=== PATIENT | male | born 1960 | race Caucasian/White ===

== ENCOUNTER 2017-02-05 08:01 | Day surgery (SDC) | payer OTHER ==
[~2017-02-05] VITALS: Ht 175.3 cm; Wt 90.0 kg
[~2017-02-05 08:01] MED LIST: ATORVASTATIN CA80 MG PO; BAYER CHEWABLE81 MG PO; BENICAR20 MG PO; COUMADIN5 MG PO; COUMADIN7.5 MG PO; CRESTOR20 MG PO; FLONASE16 G1 BOTH NARES; FOLIC ACID1 MG PO; GLUCOPHAGE XR750 MG PO; LISINOPRIL5 MG PO; LOVENOX80 MG/0.8 SC; PRINIVIL5 MG PO; TRICOR145 MG PO; TRILIPIX135 MG PO; TYLENOL EXTRA500 MG PO; VITAMIN D31000 UNI2 PO; XARELTO20 MG PO
[2017-02-05 08:47] VITALS: BP 113/70
[2017-02-05 09:01] LABS: POINT-OF-CARE METER ID UU14174212
[2017-02-05] MEDS ORDERED: PERCOCET 5/31 TABLET PO (11:45)
[2017-02-05 12:02] LABS: POINT-OF-CARE METER ID UU13113675
[2017-02-05 12:36] VITALS: BP 121/60
[2017-02-05 13:44] VITALS: BP 113/64
== END 2017-02-05 13:50 | disposition home or self-care (01) ==
LOC: SDC 08:01
PROVIDERS: Surgery
PROC: 0YU60JZ Supplement Left Inguinal Region with Synthetic Substitute, Open Approach (ICD-10-PCS; principal; 2017-02-05)
DX: K40.90 Unilateral inguinal hernia, without obstruction or gangrene, not specified as recurrent (principal); E66.9 Obesity, unspecified; Z68.29 Body mass index [BMI] 29.0-29.9, adult; N40.0 Benign prostatic hyperplasia without lower urinary tract symptoms; E11.22 Type 2 diabetes mellitus with diabetic chronic kidney disease; N18.3 Chronic kidney disease, stage 3 (moderate); E78.5 Hyperlipidemia, unspecified; E78.1 Pure hyperglyceridemia; Q43.3 Congenital malformations of intestinal fixation; E55.9 Vitamin D deficiency, unspecified; Z82.49 Family history of ischemic heart disease and other diseases of the circulatory system; Z83.3 Family history of diabetes mellitus; Z79.82 Long term (current) use of aspirin; Z79.84 Long term (current) use of oral hypoglycemic drugs; Z88.2 Allergy status to sulfonamides
CPT/HCPCS: 82948; C1781; J0131; J0690; J1170; J2250

== ENCOUNTER 2017-02-10 08:06 | Inpatient (IN) | payer OTHER ==
[~2017-02-10] VITALS: Ht 175.3 cm; Wt 90.0 kg
[~2017-02-10 08:06] MED LIST changes: +PERCOCET 5/31 TABLET PO
[2017-02-10 08:45] LABS: EOSINOPHIL COUNT 0.3 K/uL (0-0.3); HEMATOCRIT 37.6 % (38.0-50.0); IMMATURE GRANULOCYTE (%) 0.3 % (0.0-0.7); INSTRUMENT ABS NEUTROPHIL CT 10.7 K/uL; LYMPHOCYTE COUNT 1.7 K/uL (1.0-2.8); MCH 29.7 PG (29.0-34.0); MCHC 32.7 G/DL (30.0-36.0); MCV 90.8 FL (86-99); MEAN PLAT.VOLUME 8.9 uM^3 (9.0-12.4); MONOCYTE (%) 9.2 % (3-12); MONOCYTE COUNT 1.3 K/uL (0-0.8); NEUTROPHIL (%) 76.3 % (45-76); NEUTROPHIL COUNT 10.7 K/uL (1.8-6.4); PLATELET COUNT 266 K/uL (156-360); RBC DIS.WIDTH-CV 12.5 % (11.8-14.6); RBC DIS.WIDTH-SD 41.6 % (39-53); RED BLOOD COUNT 4.14 M/uL (4.00-5.50)
[2017-02-10 08:54] LABS: CHLORIDE 106 mEq/L (99-109); POTASSIUM 4.3 mEq/L (3.7-5.4); SODIUM 139 mEq/L (136-147)
[2017-02-10 08:56] LABS: GLUCOSE 126 mg/dL (70-99)
[2017-02-10 08:57] LABS: ANION GAP 11 MEQ/L (2-14)
[2017-02-10 09:00] LABS: GFR ESTIMATE (CALCULATED) 39 mL/min/; UREA NITROGEN (BUN) 46 mg/dL (9-23)
[2017-02-10 09:03] LABS: D-DIMER ELISA 2.33 mg/L FEU (< 0.57); INTER. NORMALIZED RATIO 1.1; PTT 27.5 (25-32)
[2017-02-10 09:05] LABS: TROP-I INTERPRETATION NEGATIVE; TROPONIN-I 0.05 ng/mL (0.0-0.30)
[2017-02-10] MEDS ORDERED: CRESTOR20 MG PO (13:10)
[2017-02-10] MEDS ORDERED: ENDOCET 5-3251 EACH PO (13:13)
[2017-02-10 18:28] LABS: POINT-OF-CARE METER ID UU14100415
[2017-02-10 19:45] VITALS: BP 139/72
[2017-02-10 21:26] LABS: POINT-OF-CARE METER ID UU14174225
[2017-02-10 23:37] VITALS: BP 130/70
[2017-02-11 03:55] VITALS: BP 123/68
[2017-02-11 06:46] LABS: HEMATOCRIT 35.4 % (38.0-50.0); MCH 29.6 PG (29.0-34.0); MCHC 32.5 G/DL (30.0-36.0); PLATELET COUNT 287 K/uL (156-360); RBC DIS.WIDTH-CV 12.7 % (11.8-14.6); RED BLOOD COUNT 3.89 M/uL (4.00-5.50)
[2017-02-11 06:59] LABS: INTER. NORMALIZED RATIO 1.1; PROTHROMBIN TIME 11.3 (9.2-11.2); PTT 36.8 (25-32)
[2017-02-11 07:21] LABS: ANION GAP 11 MEQ/L (2-14); CHLORIDE 102 MEQ/L (99-109); GFR ESTIMATE (CALCULATED) 48 mL/min/; GLUCOSE 129 mg/dL (70-99); POTASSIUM 4.2 MEQ/L (3.7-5.4); SAMPLE HEMOLYSIS CHECK 0; SAMPLE ICTERIC CHECK 0; SAMPLE LIPEMIA CHECK 0; SODIUM 137 MEQ/L (136-147); UREA NITROGEN (BUN) 36 mg/dL (9-23)
[2017-02-11 08:44] VITALS: BP 131/66
[2017-02-11 12:40] VITALS: BP 148/72
[2017-02-11 16:24] LABS: POINT-OF-CARE METER ID UU14174225
[2017-02-11 17:07] VITALS: BP 125/65
[2017-02-11 19:41] VITALS: BP 156/70
[2017-02-12] VITALS (7 sets, daily range): BP systolic 104–138; BP diastolic 54–83
[2017-02-12 00:07] LABS: POINT-OF-CARE USER ID BHSKTD
[2017-02-12 05:40] LABS: POINT-OF-CARE USER ID BHSKTD
[2017-02-12 08:31] LABS: MCH 29.9 PG (29.0-34.0); MCHC 32.7 G/DL (30.0-36.0); MCV 91.4 FL (86-99); MEAN PLAT.VOLUME 9.3 uM^3 (9.0-12.4); PLATELET COUNT 305 K/uL (156-360); RBC DIS.WIDTH-CV 12.8 % (11.8-14.6); RBC DIS.WIDTH-SD 42.5 % (39-53); RED BLOOD COUNT 3.61 M/uL (4.00-5.50); WHITE BLOOD COUNT 13.2 K/uL (4.1-10.2)
[2017-02-12 09:05] LABS: ANION GAP 14 MEQ/L (2-14); CHLORIDE 104 MEQ/L (99-109); GFR ESTIMATE (CALCULATED) 35 mL/min/; GLUCOSE 134 mg/dL (70-99); POTASSIUM 4.8 MEQ/L (3.7-5.4); SAMPLE HEMOLYSIS CHECK 0; SAMPLE ICTERIC CHECK 0; SAMPLE LIPEMIA CHECK 0; SODIUM 142 MEQ/L (136-147); UREA NITROGEN (BUN) 45 mg/dL (9-23)
[2017-02-13 00:08] VITALS: BP 119/69
[2017-02-13 04:00] VITALS: BP 123/87
[2017-02-13 07:23] VITALS: BP 115/63
[2017-02-13 11:06] LABS: POINT-OF-CARE METER ID UU14174225
[2017-02-13 11:17] VITALS: BP 122/65
[2017-02-13 12:07] LABS: HEMATOCRIT 30.3 % (38.0-50.0); MCH 29.3 PG (29.0-34.0); MCV 91.5 FL (86-99); MEAN PLAT.VOLUME 9.2 uM^3 (9.0-12.4); PLATELET COUNT 369 K/uL (156-360); RBC DIS.WIDTH-CV 12.8 % (11.8-14.6); RBC DIS.WIDTH-SD 42.8 % (39-53); RED BLOOD COUNT 3.31 M/uL (4.00-5.50); WHITE BLOOD COUNT 10.3 K/uL (4.1-10.2)
[2017-02-13 12:49] LABS: ANION GAP 11 MEQ/L (2-14); CHLORIDE 102 MEQ/L (99-109); POTASSIUM 4.8 MEQ/L (3.7-5.4); SAMPLE HEMOLYSIS CHECK 0; SAMPLE ICTERIC CHECK 0; SAMPLE LIPEMIA CHECK 0; SODIUM 138 MEQ/L (136-147)
[2017-02-13 12:58] LABS: TROP-I INTERPRETATION NEGATIVE; TROPONIN-I 0.01 ng/mL (0.0-0.30)
[2017-02-13 13:09] LABS: GFR ESTIMATE (CALCULATED) 45 mL/min/; UREA NITROGEN (BUN) 43 mg/dL (9-23)
[2017-02-13 13:16] LABS: GLUCOSE 264 mg/dL (70-99)
[2017-02-13 14:58] VITALS: BP 125/60
[2017-02-13 19:37] VITALS: BP 118/66
[2017-02-14] VITALS (7 sets, daily range): BP systolic 109–121; BP diastolic 56–72
[2017-02-14 01:29] LABS: POINT-OF-CARE METER ID UU14174225
[2017-02-15 03:25] VITALS: BP 117/72
[2017-02-15 06:46] LABS: EOSINOPHIL (%) 4.6 % (0-5); EOSINOPHIL COUNT 0.6 K/uL (0-0.3); HEMATOCRIT 28.8 % (38.0-50.0); IMMATURE GRANULOCYTE (%) 0.5 % (0.0-0.7); IMMATURE GRANULOCYTE COUNT 0.1 K/uL; LYMPHOCYTE COUNT 1.8 K/uL (1.0-2.8); MCH 29.4 PG (29.0-34.0); MCHC 31.9 G/DL (30.0-36.0); MEAN PLAT.VOLUME 9.7 uM^3 (9.0-12.4); MONOCYTE (%) 7.4 % (3-12); MONOCYTE COUNT 0.9 K/uL (0-0.8); NEUTROPHIL (%) 72.9 % (45-76); PLATELET COUNT 463 K/uL (156-360); RBC DIS.WIDTH-CV 13.2 % (11.8-14.6); RBC DIS.WIDTH-SD 44.4 % (39-53); RED BLOOD COUNT 3.13 M/uL (4.00-5.50); WHITE BLOOD COUNT 12.4 K/uL (4.1-10.2)
[2017-02-15 07:11] LABS: ANION GAP 9 MEQ/L (2-14); CHLORIDE 104 MEQ/L (99-109); GFR ESTIMATE (CALCULATED) 39 mL/min/; GLUCOSE 141 mg/dL (70-99); POTASSIUM 4.7 MEQ/L (3.7-5.4); SAMPLE HEMOLYSIS CHECK 0; SAMPLE ICTERIC CHECK 0; SAMPLE LIPEMIA CHECK 0; SODIUM 139 MEQ/L (136-147); UREA NITROGEN (BUN) 57 mg/dL (9-23)
[2017-02-15 07:32] VITALS: BP 98/55
[2017-02-15 07:39] LABS: POINT-OF-CARE METER ID UU14188625
[2017-02-15 11:11] VITALS: BP 103/59
[2017-02-15 15:57] VITALS: BP 122/68
[2017-02-15 19:48] VITALS: BP 111/66
[2017-02-15 21:37] LABS: POINT-OF-CARE METER ID UU14174225
[2017-02-16 00:21] VITALS: BP 118/67
[2017-02-16 01:13] LABS: METH RESISTANT S AUREUS PCR NEGATIVE (NEGATIVE)
[2017-02-16 01:19] LABS: PROBE CHECK PASS; SPECIMEN PROCESSING CONTROL PASS
[2017-02-16 04:11] VITALS: BP 127/71
[2017-02-16 07:22] LABS: HEMATOCRIT 27.1 % (38.0-50.0); MCH 29.4 PG (29.0-34.0); MCHC 32.1 G/DL (30.0-36.0); MCV 91.6 FL (86-99); MEAN PLAT.VOLUME 9.4 uM^3 (9.0-12.4); PLATELET COUNT 534 K/uL (156-360); RBC DIS.WIDTH-CV 13.2 % (11.8-14.6); RBC DIS.WIDTH-SD 44.8 % (39-53); RED BLOOD COUNT 2.96 M/uL (4.00-5.50); WHITE BLOOD COUNT 10.8 K/uL (4.1-10.2)
[2017-02-16 07:50] VITALS: BP 114/63
[2017-02-16 07:52] LABS: ANION GAP 7 MEQ/L (2-14); CHLORIDE 107 MEQ/L (99-109); GFR ESTIMATE (CALCULATED) 42 mL/min/; POTASSIUM 4.9 MEQ/L (3.7-5.4); SAMPLE HEMOLYSIS CHECK 0; SAMPLE ICTERIC CHECK 0; SAMPLE LIPEMIA CHECK 0; SODIUM 140 MEQ/L (136-147); UREA NITROGEN (BUN) 53 mg/dL (9-23)
[2017-02-16 07:53] LABS: GLUCOSE 92 mg/dL (70-99)
[2017-02-16 10:51] VITALS: BP 115/57
[2017-02-16 11:34] LABS: POINT-OF-CARE METER ID UU14174225; POINT-OF-CARE USER ID STWAMT
[2017-02-16 15:04] VITALS: BP 112/67
[2017-02-16 20:00] VITALS: BP 136/71
[2017-02-17] VITALS: BP 109/67
[2017-02-17 04:00] VITALS: BP 103/60
[2017-02-17 07:54] LABS: POINT-OF-CARE METER ID UU14188625
[2017-02-17 07:57] VITALS: BP 118/72
[2017-02-17 08:22] LABS: HEMATOCRIT 28.4 % (38.0-50.0); MCH 29.4 PG (29.0-34.0); MCV 91.6 FL (86-99); MEAN PLAT.VOLUME 9.2 uM^3 (9.0-12.4); PLATELET COUNT 622 K/uL (156-360); RBC DIS.WIDTH-CV 13.3 % (11.8-14.6); RBC DIS.WIDTH-SD 44.6 % (39-53)
[2017-02-17 08:36] LABS: ANION GAP 8 MEQ/L (2-14); CHLORIDE 107 MEQ/L (99-109); GFR ESTIMATE (CALCULATED) 48 mL/min/; GLUCOSE 81 mg/dL (70-99); POTASSIUM 5.3 MEQ/L (3.7-5.4); SAMPLE HEMOLYSIS CHECK 0; SAMPLE ICTERIC CHECK 0; SAMPLE LIPEMIA CHECK 0; SODIUM 141 MEQ/L (136-147); UREA NITROGEN (BUN) 47 mg/dL (9-23)
[2017-02-17 11:14] VITALS: BP 120/64
[2017-02-17 12:13] LABS: POINT-OF-CARE USER ID STWAMT
[2017-02-17] MEDS ORDERED: VENTOLIN HFA18 GM IH (12:13)
[2017-02-17] MEDS ORDERED: ELIQUIS5 MG PO (12:13)
[2017-02-17] MEDS ORDERED: LEVAQUIN750 MG PO (12:13)
== END 2017-02-17 14:50 | disposition home or self-care (01) | DRG 299 ==
LOC: EME 08:06 → EDOF 12:05 → 5SOUTH 12:05 → EDOF 12:24 → 5SOUTH 19:32
PROVIDERS: Emergency Medicine; Hospitalist; Internal Medicine; Internal Medicine Infectious Disease; Nurse Practitioner Adult Health; Physician Assistant; Physician Assistant Medical
DX: I82.411 Acute embolism and thrombosis of right femoral vein (principal); J15.6 Pneumonia due to other Gram-negative bacteria; I26.99 Other pulmonary embolism without acute cor pulmonale; R04.2 Hemoptysis; N17.9 Acute kidney failure, unspecified; J90 Pleural effusion, not elsewhere classified; E11.22 Type 2 diabetes mellitus with diabetic chronic kidney disease; I25.10 Atherosclerotic heart disease of native coronary artery without angina pectoris; N18.3 Chronic kidney disease, stage 3 (moderate); E78.5 Hyperlipidemia, unspecified; M54.6 Pain in thoracic spine; I12.9 Hypertensive chronic kidney disease with stage 1 through stage 4 chronic kidney disease, or unspecified chronic kidney disease; G47.33 Obstructive sleep apnea (adult) (pediatric); R91.1 Solitary pulmonary nodule; Z87.891 Personal history of nicotine dependence; Z86.718 Personal history of other venous thrombosis and embolism; Z79.01 Long term (current) use of anticoagulants; K46.9 Unspecified abdominal hernia without obstruction or gangrene; E86.0 Dehydration
CPT/HCPCS: 71010; 71020; 71250; 71275; 78582; 80048; 82948; 84484; 85025; 85027; 85379; 85610; 85730; 87641; 93005; 93971; 94640; 94640 76; 94760; 94799; 99281; 99285; A9540; A9567; J0456; J0692; J0696; J1815; J1885; J2270; J7030; J7050; J7120; J7512

== ENCOUNTER 2017-03-13 16:20 | Observation (INO) | payer OTHER ==
[~2017-03-13] VITALS: Ht 175.3 cm; Wt 85.6 kg
[~2017-03-13 16:20] MED LIST changes: +ELIQUIS5 MG PO; +ENDOCET 5-3251 EACH PO; +LEVAQUIN750 MG PO; +VENTOLIN HFA18 GM IH
[2017-03-13 16:53] LABS: BASOPHIL COUNT 0.1 K/uL (0-0.1); EOSINOPHIL (%) 15.1 % (0-5); EOSINOPHIL COUNT 1.1 K/uL (0-0.3); IMMATURE GRANULOCYTE (%) 0.3 % (0.0-0.7); INSTRUMENT ABS NEUTROPHIL CT 3.3 K/uL; LYMPHOCYTE COUNT 2.3 K/uL (1.0-2.8); MCHC 32.1 G/DL (30.0-36.0); MCV 90.4 FL (86-99); MONOCYTE (%) 7.3 % (3-12); MONOCYTE COUNT 0.5 K/uL (0-0.8); NEUTROPHIL (%) 44.8 % (45-76); NEUTROPHIL COUNT 3.3 K/uL (1.8-6.4); RBC DIS.WIDTH-CV 13.8 % (11.8-14.6); RBC DIS.WIDTH-SD 44.8 % (39-53); RED BLOOD COUNT 3.76 M/uL (4.00-5.50)
[2017-03-13 17:02] LABS: INTER. NORMALIZED RATIO 1.1; PROTHROMBIN TIME 11.6 (9.2-11.2); PTT 26.8 (25-32)
[2017-03-13 17:07] LABS: CHLORIDE 110 mEq/L (99-109); POTASSIUM 4.4 mEq/L (3.7-5.4); SODIUM 142 mEq/L (136-147)
[2017-03-13 17:09] LABS: GLUCOSE 103 mg/dL (70-99)
[2017-03-13 17:10] LABS: ANION GAP 13 MEQ/L (2-14)
[2017-03-13 17:12] LABS: TROP-I INTERPRETATION NEGATIVE; TROPONIN-I < 0.01 ng/mL (0.0-0.30)
[2017-03-13 17:13] LABS: GFR ESTIMATE (CALCULATED) 51 mL/min/
[2017-03-13 17:14] LABS: UREA NITROGEN (BUN) 32 mg/dL (9-23)
[2017-03-13 17:26] LABS: WHITE BLOOD COUNT 7.3 K/uL (4.1-10.2)
[2017-03-13 17:38] LABS: HEMATOLOGY COMMENT 1 SN; MEAN PLAT.VOLUME 8.8 uM^3 (9.0-12.4); PLAT.SUFFICIENCY ADEQUATE
[2017-03-13 17:43] LABS: PLATELET COUNT 364 K/uL (156-360)
[2017-03-13 21:01] VITALS: BP 185/89
[2017-03-13 21:42] LABS: POINT-OF-CARE METER ID UU14162513
[2017-03-13 22:00] LABS: MAGNESIUM 1.6 mg/dL (1.3-2.7)
[2017-03-13] MEDS ORDERED: NEXIUM20 MG PO (22:41)
[2017-03-13 23:46] VITALS: BP 123/63
[2017-03-14 04:19] VITALS: BP 126/63
[2017-03-14 05:05] LABS: TROP-I INTERPRETATION NEGATIVE; TROPONIN-I < 0.01 ng/mL (0.0-0.30)
[2017-03-14 07:25] VITALS: BP 109/58
[2017-03-14 07:46] LABS: POINT-OF-CARE METER ID UU13113831
[2017-03-14] MEDS ORDERED: CARVEDILOL3.125 MG PO (09:46)
[2017-03-14 12:03] LABS: POINT-OF-CARE METER ID UU14162513
[2017-03-14 12:04] VITALS: BP 120/63
== END 2017-03-14 12:30 | disposition home or self-care (01) ==
LOC: EME 16:20 → EDOF 19:34 → 5WEST 20:51
PROVIDERS: Emergency Medicine; Hospitalist; Internal Medicine; Physician Assistant Medical
DX: R07.9 Chest pain, unspecified (principal); I49.1 Atrial premature depolarization; R00.2 Palpitations; G47.33 Obstructive sleep apnea (adult) (pediatric); Z86.711 Personal history of pulmonary embolism; Z86.718 Personal history of other venous thrombosis and embolism; I12.9 Hypertensive chronic kidney disease with stage 1 through stage 4 chronic kidney disease, or unspecified chronic kidney disease; E11.9 Type 2 diabetes mellitus without complications; E78.5 Hyperlipidemia, unspecified; N18.9 Chronic kidney disease, unspecified
CPT/HCPCS: 71010; 71275; 80048; 82948; 83735; 84484; 85025; 85610; 85730; 93005; 99202; 99281; 99285; G0378; J1815; J7030